=== PATIENT | female | born 1985 | race African-American/Black ===

== ENCOUNTER 2017-01-30 15:53 | Emergency (ER) | payer MEDICAID ==
[~2017-01-30] VITALS: Ht 177.8 cm; Wt 87.5 kg
[2017-01-30] MEDS ORDERED: ASPIRIN 81 MG TABLET CHEW PO ONE (16:00)
[2017-01-30 16:55] LABS: HEMOGLOBIN 13.4 g/dL (11.7-16.4)
[2017-01-30] MEDS ORDERED: QUET25TA5 PO (16:57)
[2017-01-30 17:07] LABS: ASPARTATE AMINO TRANSFERASE 15 U/L (15-37); BLOOD UREA NITROGEN 5 mg/dL (7-18)
[2017-01-30 17:12] LABS: IS PT STATUS REG ER OR PRE ER? YES
[2017-01-30 17:49] VITALS: BP 118/82
== END 2017-01-30 18:07 | disposition home or self-care (01) ==
LOC: ED 17:30
DX: R06.00 Dyspnea, unspecified (principal); Z98.51 Tubal ligation status; R10.11 Right upper quadrant pain; R06.02 Shortness of breath
CPT/HCPCS: 36415; 71020; 80053; 84484; 85025; 93005; 99285